=== PATIENT | male | born 1995 | race Caucasian/White ===

== ENCOUNTER 2020-03-14 08:10 | Emergency (ER) | payer BC, MEDICAID ==
[2020-03-14] MEDS ORDERED: Propofol 200 MG/20 ML SDV IV ONE (08:11)
[2020-03-14] MEDS ORDERED: Citric Acid/Sodium Citrate Solution 30 ML Cup PO ONE (08:11)
[2020-03-14] MEDS ORDERED: fentaNYL 100 MCG/2 ML SDV IV ONE (08:11)
[2020-03-14] MEDS ORDERED: Midazolam 1 MG/ML 2 ML SDV IV ONE (08:11)
[2020-03-14] MEDS: HYDROmorphone 2 MG/ML SDV IVPUSH STA (08:18)
[2020-03-14] MEDS: HYDROmorphone 2 MG/ML SDV IVPUSH ONE (08:21)
[2020-03-14] MEDS: Sodium Chloride 0.9% 10 ML Syringe FLUSH PRN (08:35)
--- NOTE | 2020-03-14 08:50 | EDM.PDOC ---
<Fahad Ferrer - Last Filed: 03/14/20 08:54> ED HPI GENERAL MEDICAL PROBLEM - General Stated Complaint: RT SHOULDER INJURY Time Seen by Provider: 03/14/20 08:20 Source of Information: Reports: Patient History Limitations: Reports: No Limitations - History of Present Illness INITIAL COMMENTS - FREE TEXT/NARRATIVE: Patient presented to the ED because of right shoulder pain. He woke up with the pain,08/23, and thought that he dislocated his R shoulder. There is no recent trauma or injury. He injured his Rt shoulder 3 years ago with dislocation and was surgically reduced and repaired. - Related Data Allergies Allergy/AdvReac Type Severity Reaction Status Date / Time No Known Allergies Allergy Verified 03/14/20 08:17 Past Medical History Musculoskeletal History: Reports: Other (See Below) Other Musculoskeletal History: right shoulder surgery and dislocation. Social & Family History - Family History Family Medical History: Noncontributory Review of Systems - Review of Systems Review Of Systems: See Below Constitutional: Reports: No Symptoms Eyes: Reports: No Symptoms Ears: Reports: No Symptoms Nose: Reports: No Symptoms Mouth/Throat: Reports: No Symptoms Respiratory: Reports: No Symptoms Cardiovascular: Reports: No Symptoms GI/Abdominal: Reports: No Symptoms Genitourinary: Reports: No Symptoms Musculoskeletal: Reports: Shoulder Pain Skin: Reports: No Symptoms Neurological: Reports: No Symptoms ED EXAM, GENERAL - Physical Exam Exam: See Below Exam Limited By: No Limitations General Appearance: Alert Eye Exam: Bilateral Eye: PERRL Nose: Normal Inspection, Normal Mucosa, No Blood Throat/Mouth: Normal Inspection, Normal Lips, Normal Teeth Head: Atraumatic, Normocephalic Respiratory/Chest: No Respiratory Distress, Lungs Clear, Normal Breath Sounds Cardiovascular: Normal Peripheral Pulses, Regular Rate, Rhythm, No Edema, No Gallop GI/Abdominal: Normal Bowel Sounds, Soft, Non-Tender, No Organomegaly Back Exam: Normal Inspection, Full Range of Motion Extremities: Normal Inspection, Normal Range of Motion Course - Vital Signs Text/Narrative:: Xray of rt shoulder-rt anterior dislocation sedation by [employer]-see notes dialudid 1 mg IV x1 Last Recorded V/S: Last Vital Signs Temp 36.1 C 03/14/20 08:20 Pulse 68 03/14/20 08:20 Resp 17 03/14/20 08:20 BP 139/90 03/14/20 08:20 Pulse Ox 97 03/14/20 08:20 - Orders/Labs/Meds Orders: Active Orders 24 hr Category Date Time Status Oxygen Therapy [RC] ASDIRECTED Care 03/14/20 08:14 Active Shoulder Comp Rt [CR] Stat Exams 03/14/20 08:12 Taken Sodium Chloride 0.9% [Saline Flush] Med 03/14/20 08:12 Active 10 ml FLUSH ASDIRECTED PRN Saline Lock Insert [OM.PC] Routine Oth 03/14/20 08:12 Ordered Medication Orders Sodium Chloride (Saline Flush) 10 ml FLUSH ASDIRECTED PRN PRN Reason: Keep Vein Open Meds: Medications Generic Name Dose Route Start Last Admin Trade Name Freq PRN Reason Stop Dose Admin Sodium Chloride 10 ml 03/14/20 08:12 Saline Flush FLUSH ASDIRECTED PRN Keep Vein Open Discontinued Medications Generic Name Dose Route Start Last Admin Trade Name Freq PRN Reason Stop Dose Admin Hydromorphone HCl 2 mg 03/14/20 08:12 03/14/20 08:21 Dilaudid IVPUSH 03/14/20 08:13 Not Given ONETIME ONE Hydromorphone HCl 1 mg 03/14/20 08:16 03/14/20 08:18 Dilaudid IVPUSH 03/14/20 08:17 1 mg NOW STA Administration Departure - Departure Time of Disposition: 10:00 Disposition: Home, Self-Care 01 Condition: Good Clinical Impression: Shoulder dislocation, recurrent - Discharge Information Instructions: Shoulder Dislocation, [id number] Referrals: PCP,None [Primary Care Provider] - Forms: ED Department Discharge Additional Instructions: Please read discharge instructions on shoulder dislocation. Keep the sling on for 2 days. Take ibuprofen 800 mg with tylenol 1000 mg every 8 hours as needed for pain. Use ice for 10 minutes every 1-2 hours as needed. Follow up with your orthopedic doctor next week. Sepsis Event Note - Evaluation Sepsis Screening Result: No Definite Risk - Focused Exam Vital Signs: Vital Signs Temp Pulse Resp BP Pulse Ox 03/14/20 08:20 36.1 C 68 17 139/90 97 Date Exam was Performed: 03/14/20 Time Exam was Performed: 08:54 <Ion Villalpando - Last Filed: 03/14/20 09:49> Course - Re-Assessments/Exams Free Text/Narrative Re-Assessment/Exam: 03/14/20 09:42 pt seen and evaluated by Dr Ferrer on arrival, pt with anterior shoulder disloc , his 8th, has had surgery once, has plans for 2nd surgery when COVID crisis eases and elective surgeries allowed original injury playing [employer], had awoke this AM with shoulder dislocated during the night playing [employer] 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[employer], 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, 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 XR with anterior disloc, ball palpable, with conscious sedation and pt alert enough to speak in complete sentences and to actively resist, the shoulder was relocated with post reduction film showing the reduction axial traction-countertraction done with external technique without success, right shoulder dropped down considerable as pt tried to counteract the traction , Spaso technique also with tight muscles, after an additional 1 mg Versed and continuous axial traction for several minutes, the muscles relaxed enough the reduction achieved with 30 degrees external rotation in doing ROM after reduction and the shoulder flexed 90 degrees (and no external rotation), the head could be felt sliding out of the joint pt advised to avoid both shoulder flex and ext rotation, sling applied Departure - Departure Time of Disposition: 09:39 Condition: Good - Discharge Information *PRESCRIPTION DRUG MONITORING PROGRAM REVIEWED*: Not Applicable *COPY OF PRESCRIPTION DRUG MONITORING REPORT IN PATIENT MARIA ELENA: Not Applicable Sepsis Event Note - Focused Exam Date Exam was Performed: 03/14/20 Time Exam was Performed: 09:38
[2020-03-14] MEDS: Sodium Chloride 0.9% 1,000 ML IV SCH (09:00)
== END 2020-03-14 10:48 | disposition home or self-care (01) ==
LOC: FB.ED 08:10
DX: M24.411 Recurrent dislocation, right shoulder (principal)
CPT/HCPCS: 23650; 73020-RT; 73030-RT; 96361; 96374; 99152; 99153; 99283-25; A9270-GY; J1170; J2250; J2704; J3010; J7030

== ENCOUNTER 2021-10-28 01:45 | Emergency (ER) | payer BC, MEDICAID ==
[2021-10-28] MEDS ORDERED: Diphtheria,Pertussis(Acell),Tetanus Vaccine 0.5 ML Syringe IM ONE (01:55)
--- NOTE | 2021-10-29 08:20 | EDM.PDOC ---
ED HPI GENERAL MEDICAL PROBLEM - General Stated Complaint: DOG BITE Time Seen by Provider: 10/28/21 01:50 Source of Information: Reports: Patient History Limitations: Reports: No Limitations - History of Present Illness INITIAL COMMENTS - FREE TEXT/NARRATIVE: Patient presented to the ED because of a dog bite on his nose. He was playing with his nose when his dog bit the nasal bridge. He sustained a shallow laceration that measures 2.5 cm. It looks more of abrasion except at the very end of the wound where the skin was sloughed. - Related Data Allergies Allergy/AdvReac Type Severity Reaction Status Date / Time No Known Allergies Allergy Verified 03/14/20 08:17 Home Meds: Home Meds NK [No Known Home Meds] 03/14/20 [History] Past Medical History Musculoskeletal History: Reports: Other (See Below) Other Musculoskeletal History: right shoulder surgery and dislocation. Social & Family History - Family History Family Medical History: No Pertinent Family History - Caffeine Use Caffeine Use: Reports: Coffee ED ROS GENERAL - Review of Systems Review Of Systems: See Below Constitutional: Reports: No Symptoms HEENT: Reports: No Symptoms Respiratory: Reports: No Symptoms Cardiovascular: Reports: No Symptoms Endocrine: Reports: No Symptoms GI/Abdominal: Reports: No Symptoms : Reports: No Symptoms Musculoskeletal: Reports: No Symptoms Skin: Reports: Wound Neurological: Reports: No Symptoms Psychiatric: Reports: No Symptoms ED EXAM, GENERAL - Physical Exam Exam: See Below Exam Limited By: No Limitations General Appearance: Alert, No Apparent Distress Ears: Normal External Exam, Normal Canal Nose: Normal Inspection, Normal Mucosa, No Blood Throat/Mouth: Normal Inspection, Normal Lips, Normal Teeth Head: Atraumatic, Normocephalic Neck: Normal Inspection, Supple, Non-Tender, Full Range of Motion Respiratory/Chest: No Respiratory Distress, Lungs Clear, Normal Breath Sounds, No Accessory Muscle Use, Chest Non-Tender Cardiovascular: Normal Peripheral Pulses, Regular Rate, Rhythm, No Edema, No Gallop, No JVD, No Murmur GI/Abdominal: Normal Bowel Sounds, Soft, Non-Tender, No Organomegaly Extremities: Normal Inspection, Normal Range of Motion, Non-Tender, No Pedal Edema, Normal Capillary Refill Neurological: Alert, Oriented, CN II-XII Intact, Normal Cognition, Normal Gait, Normal Reflexes, No Motor/Sensory Deficits Psychiatric: Normal Affect Skin Exam: Warm ED GENERAL MEDICAL PROCEDURES - Laceration/Wound Repair Middle Nose Lac/wound length in cm: 2.5 Appearance: Superficial, Clean Skin Prep: Chlorhexidine (Hibiciens) Closed with: Dermabond Course - Vital Signs Text/Narrative:: Tdap Departure - Departure Time of Disposition: 02:45 Disposition: Home, Self-Care 01 Condition: Good Clinical Impression: Laceration - Discharge Information Instructions: Laceration Care, Adult, [id number] Referrals: PCP,None [Primary Care Provider] - Additional Instructions: Please read discharge instructions on dog bite and laceration care Keep the wound dry for 43-5 days No need to apply an antibiotic ointment, the glue is medicated Augmentin 875 mg twice daily for 10 days Follow up as needed
== END 2021-10-28 02:40 | disposition home or self-care (01) ==
LOC: FB.ED 01:45
DX: S01.25XA Open bite of nose, initial encounter (principal); Z23 Encounter for immunization; W54.0XXA Bitten by dog, initial encounter
CPT/HCPCS: 12011; 99283-25